=== PATIENT | male | born 1990 | race Caucasian/White ===

== ENCOUNTER 2024-05-04 14:18 | Outpatient (AMB) | payer OTHER, SELFPAY ==
--- NOTE | 2024-05-04 14:21 | MHC.PC.OV ---
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 pt will drop off values in 3 weeks approx. PFSH Social History Housing: House Patient Tobacco Use Status: Never used Tobacco service: No Current occupational status: employed Current occupation: [employer] Cognitive needs: No Hearing needs: No Vision needs: No Questionnaire PHQ-9 Over the last 2 weeks, how often have you been bothered by any of the following problems? 1. Little interest or pleasure in doing things: not at all 2. Feeling down, depressed, or hopeless: not at all 3. Trouble falling or staying asleep, or sleeping too much: not at all 4. Feeling tired or having little energy: several days 5. Poor appetite or overeating: not at all 6. Feeling bad about yourself - or that you are a failure or have let yourself or your family down: not at all 7. Trouble concentrating on things, such as reading the newspaper or watching television: not at all 8. Moving or speaking so slowly that other people could have noticed. Or the opposite - being so fidgety or restless that you have been moving around a lot more than usual: not at all 9. Thoughts that you would be better off or of hurting yourself in some way: not at all Total score: 1 Depression Screening Interpretation: Negative Depression Screening Done: Yes 36878 - PHQ-9 Billing: Yes Source: Developed by Drs. Geraldo Giordano, Neha Fletcher, Jamal Roman and colleagues, with an educational shannon from [employer]. Thrive Questionnaire Date Thrive assessed: 05/04/24 I am a: Patient What is your living situation today?: I have a steady place to live Within the past 12 months, did the food you bought not last and you didn't have the money to get more?: Never true Within the past 12 months, did you worry whether your food would run out before you got money to buy more?: Never true Do you have trouble paying for medicines?: No Do you have trouble getting transportation to medical appointments?: No Do you have trouble paying your heating and electricity bill?: No Do you have trouble taking care of your child, family member or friend?: No Do you have trouble with day-to-day activities such as bathing, preparing meals, shopping, managing finances, etc.?: No Are you currently unemployed and looking for a job?: No Are you interested in more education?: No Please select the resources that you would like help with: Housing/Halfway Currently or been in a relationship where the following occur: No concerns reported THRIVE Score: 0 AUDIT C Alcohol Use Questionnaire (AUDIT-C) 1. How often do you have a drink containing alcohol?: 4 or more times a week 2. How many drinks containing alcohol do you have on a typical day when you are drinking?: 3 or 4 3. How often do you have six or more drinks on one occasion?: Monthly Total Score: 7 DORI-7 AMB Questionnaire DORI-7 Date DORI - 7 assessed: 05/04/24 Feeling nervous, anxious, or on edge: 1 = Several days Not being able to stop or control worryin = Not at all Worrying too much about different things: 0 = Not at all Trouble relaxin = Several days Being so restless that it is hard to sit still: 1 = Several days Becoming easily annoyed or irritable: 1 = Several days Feeling afraid as if something awful might happen: 0 = Not at all Total DORI-7 score (0-4 normal; 5-9 mild; 10-14 moderate; 15-21 severe): 4 Source: Developed by Drs. Geraldo Giordano, Neha Fletcher, Jamal Roman and colleagues, with an educational shannon from [employer]. DORI-7 Assessment Billing DORI-7 Assessment Tool: DORI-7 Assessment 76052 Review of Systems Const Denies chills and Denies fever(s) Eyes Denies blurry vision ENT Denies vertigo, Denies dizziness and Denies sore throat Card Denies chest pain at rest, Denies chest pain with activity, Denies diaphoresis, Denies dyspnea and Denies dyspnea on exertion Resp Denies cough, Denies dyspnea, Denies dyspnea on exertion and Denies wheezing GI Denies abdominal pain, Denies melena, Denies hematochezia, Denies constipation, Denies diarrhea and Denies loose stools Denies hematuria Musc Denies numbness and Denies tingling Skin/Breast Denies lesions Neuro Denies vertigo, Denies dizziness, Denies numbness and Denies tingling Psych Denies anxiety, Denies depression, Denies homicidal ideation, Denies suicidal ideation and Denies other (substance abuse) Aller/Immun Denies wheezing Physical exam (Primary Care) Vital Signs: Last Vital Signs Pulse 86 05/04/24 14:23 BP 150/100 H 05/04/24 14:23 Pulse Ox 98 05/04/24 14:23 Oxygen Delivery Method Room Air 05/04/24 14:23 BMI result Body Mass Index 27.0 Tobacco/Smoking Status: Tobacco use Status Tobacco use date assessed 05/04/24 05/04/24 14:27 Patient Tobacco Use Status Never used Tobacco 05/04/24 14:27 PHQ-9: PHQ-9 Score PHQ-9: Total score 1 05/04/24 14:49 Depression Screening Interpretation: Negative Thrive Assessment: Date of Thrive Assessment Date Thrive assessed 05/04/24 05/04/24 14:27 Currently or been in a relationship where the following occur: No concerns reported Const General: cooperative Nutritional Appearance: well nourished Orientation/consciousness: patient oriented x3 HENMT Head: Yes normal to inspection, Yes normocephalic and Yes atraumatic Ears: TM normal on the right and TM normal on the left Eyes General: appearance normal, both eyes and all related structures Alignment and Position: alignment normal and position normal Neck Neck: Yes normal visual inspection and Yes no lymphadenopathy Resp Effort & Inspection: normal respiratory effort Auscultation: clear to auscultation bilaterally Cardio Rate: regular rate Rhythm: regular rhythm Heart sounds: S1 normal heart sound present, S2 normal heart sound present and no murmurs GI Palpation (GI): Soft to palpation and nontender Auscultation: normal bowel sounds Male General Exam: Yes normal external exam Penis: normal penis Scrotum: scrotum normal, testes descended bilaterally and no inguinal hernias Testes: no testicular mass Skin Rashes: no rashes Neuro General: patient oriented x3, moves all extremities, no focal motor deficits and deep tendon reflexes 2+ bilaterally Romberg Test: Negative Extrem Right lower extremity: no edema Left lower extremity: no edema Psych Affect: normal affect Attitude: cooperative Thought process: Normal thought process present Assessment and Plan Assessment & Plan (1) Physical exam: Code(s): Z00.00 - Encounter for general adult medical examination without abnormal findings (2) HTN (hypertension): Code(s): I10 - Essential (primary) hypertension Plan: starting low dose losartan, pt will take his BP at home and drop off values. Orders: Orders TSH reflex Free T4 Today Z00.00 - Encounter for general adult medical examination without abnormal findings Complete Blood Count Auto Diff Today Z00.00 - Encounter for general adult medical examination without abnormal findings Comprehensive [place]. Panel Fast Today Z00.00 - Encounter for general adult medical examination without abnormal findings UA CC w/rflx Micro + Cult Today Z00.00 - Encounter for general adult medical examination without abnormal findings Lipid Panel Today Z00.00 - Encounter for general adult medical examination without abnormal findings Medications: New losartan 25 mg PO DAILY 90 tabs 0RF Coding Level of Care Code New Pt Prev Care 18-39yr(99716 Diagnoses Physical exam Z00.00 HTN (hypertension) I10 Additional Codes DORI-7 Assessment Billing - DORI-7 Assessment Tool: DORI-7 Assessment 72909 ([id number])
[2024-05-04 14:23] VITALS: BP 150/100; PULSE 86; O2SAT 98; BMI 27.0
[2024-05-04 15:05] VITALS: BP 150/100
== END 2024-05-04 15:19 | disposition home or self-care (01) ==
PROVIDERS: PCP Nurse Practitioner Family; Visit Provider Nurse Practitioner Family
DX: Z00.00 Encounter for general adult medical examination without abnormal findings (principal); I10 Essential (primary) hypertension
CPT/HCPCS: 99385

== ENCOUNTER 2024-10-03 08:41 | Outpatient (REF) | payer OTHER, SELFPAY ==
[2024-10-03 11:26] LABS: MANUAL DIFF FLAG NO
[2024-10-03 11:27] LABS: Basophils Percent Auto 0.8 % (0-2); Eosinophils Absolute Auto 0.1 X10*3/uL (0.0-0.4); Eosinophils Percent Auto 1.5 % (0-4); Hematocrit 43.8 % (42.0-52.0); Imm Gran Abs Auto 0.01 X10*3/uL (0.00-0.03); Imm Gran Pct Auto 0.2 % (0.0-0.4); Lymphocytes Absolute Auto 1.9 X10*3/uL (1.2-4.9); Mean Corpuscular HGB Conc 34.2 g/dl (31.0-36.0); Mean Corpuscular Hemoglobin 31.5 pg (27.0-33.0); Mean Platelet Volume 10.9 fL (9.4-12.4); Monocytes Absolute Auto 0.5 X10*3/uL (0.1-1.2); Monocytes Percent Auto 10.2 % (2-11); Neutrophils Absolute Auto 2.8 x10*3/uL (2.0-8.3); Neutrophils Percent Auto 52.3 % (45-73); Platelet Count 247 X10*3/uL (160-400); Red Blood Count 4.76 X10*6/uL (4.60-5.80); Red Cell Distribution Width 12.3 % (11.0-16.0); White Blood Count 5.3 X10*3/uL (4.8-10.8)
[2024-10-03 11:50] LABS: Alanine Aminotransferase 44 U/L (0-40); Albumin Level 4.1 g/dL (3.5-5.0); Alkaline Phosphatase 45 U/L (39-117); Anion Gap 11 (12-20); Aspartate Amino Transferase 29 U/L (5-37); Bilirubin Total 0.8 mg/dL (0.0-1.0); Blood Urea Nitrogen 12 mg/dL (9-16); Carbon Dioxide 26 mmol/L (22-29); Chloride 108 mmol/L (96-108); Cholesterol 279 mg/dL (<200); Estimated Glomerular Filt Rate > 60; Glucose Fasting 100 mg/dL (60-99); HDL Cholesterol 63 mg/dL (>40); LDL Cholesterol Calculated 186 mg/dL (<100); Sodium 141 mmol/L (135-145); Total Protein 6.8 g/dL (6.5-8.0); Triglycerides 154 mg/dL (<150)
[2024-10-03 12:05] LABS: TSH reflex Free T4 1.61 uIU/mL (0.32-4.0)
== END 2024-10-03 08:42 | disposition home or self-care (01) ==
LOC: HO.HMGCLDS 08:41
PROVIDERS: PCP Nurse Practitioner Family; Visit Provider Nurse Practitioner Family
DX: Z00.00 Encounter for general adult medical examination without abnormal findings (principal)
CPT/HCPCS: 36415; 80053; 80061; 84443; 85025

== ENCOUNTER 2024-10-19 16:03 | Outpatient (AMB) | payer OTHER, SELFPAY ==
[2024-10-19 16:04] VITALS: BP 138/88; PULSE 81; O2SAT 98; BMI 27.7
--- NOTE | 2024-10-19 16:04 | A.OFFPC_ITS ---
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 Accompanied by: Self / Same As Patient Allergies No Known Allergies Allergy (Verified 10/19/24 16:05) Medication List - Last Reconciled 10/19/24 by RORY Zhou losartan 25 mg PO DAILY Tobacco use date assessed: 10/19/24 Dental Screening Dental Screen Date: 10/19/24 Did you have a dental visit in the last 12 months?: Yes Did you have a dental problem in the last 6 months where you did not have access to dental care?: No Was dental information given to patient?: Patient has dentist HPI 6 month follow up HPI Details Chief Complaint Review of laboratory results indicating elevated liver enzymes and hy perlipidemia. History of Present Illness The patient is a 34-year-old male presenting for follow-up of recent laboratory findings. Initially, at the end of September, the patient's blood tests revealed a slightly elevated alanine aminotransferase (ALT) level, prompting further investigation into possible hepatic issues. In addition, there were significant concerns about lipid profile abnormalities, particularly with elevated cholesterol levels, including LDL and triglycerides. There have not been any reported abdominal symptoms. The patient has been advised on dietary modifications to help manage these issues, and plans have been made to reassess the lipid panel in two months with a fasting lab. The patient is aware of the potential need for pharmacological intervention depending on follow-up results. Social History - Current focus on dietary management to address hyperlipidemia Health Maintenance - Discussion on dietary changes for lipi d management - Plan for repeat fasting lipid profile in two months Review of Systems Physical Exam General: Cooperative, healthy appearing, comfortable, no acute distress and well developed Orientation: Patient oriented x3 Limitations: No limitations Head: Normal to inspection Ears: Hearing grossly normal bilaterally Nose: Normal external nose present Face and sinus: Normal facial exam Eyes: Appearance normal, both eyes and all related structures Neck: Normal visual inspection and Yes full ROM Respiratory: Normal respiratory effort and able to speak in complete sentences. Clear to auscultation bilaterally Cardiovascular: Regular rate and rhythm. Normal S1 and S2 GI: Normal to inspection. Soft to palpation and nontender Skin: No rashes or lesions noted Neuro: Patient oriented x3 Extremities: Normal to inspection Results - Labs: Elevated ALT, Elevated LDL and t riglycerides Plan - Schedule an abdominal ultrasound to in vestigate elevated liver enzymes. - Perform hepatitis screening. - Educate the patient on dietary modific ations focusing on lipid control. - Plan to repeat lipid profile in two mo [facility] under fasting conditions. - Consider starting a statin medication based on future lab results. Patient was informed and verbally consented to the use of an ambient scribe for clinic note documentation during this visit. Discussion Notes I discussed with the patient the findings of elevated ALT and potential causes requiring further investigation through imaging and hepatitis screening. We reviewed the elevated cholesterol, LDL, and triglycerides levels and emphasized the importance of dietary modifications to reduce these values. The patient was informed of the potential need for statin therapy if lipid levels remain elevated, acknowledging the benefits and possible risks associated with medication. Follow-up plans include obtaining a fasting lipid profile in two months to evaluate the effectiveness of dietary changes. Patient Instructions - Follow the dietary recommendations pro vided to assist in reducing cholesterol levels. - Undergo an abdominal ultrasound and he patitis screening as directed. - Schedule blood tests for a repeat fast ing lipid profile in two months. - Return for follow-up after completing the tests to discuss further management. [facility] Surgical History No pertinent past surgical history Social History Housing: House Patient Tobacco Use Status: Never used Tobacco service: No Current occupational status: employed Current occupation: [employer] Cognitive needs: No Hearing needs: No Vision needs: No Questionnaire PHQ-9 Over the last 2 weeks, how often have you been bothered by any of the following problems? 1. Little interest or pleasure in doing things: not at all 2. Feeling down, depressed, or hopeless: not at all 3. Trouble falling or staying asleep, or sleeping too much: not at all 4. Feeling tired or having little energy: several days 5. Poor appetite or overeating: not at all 6. Feeling bad about yourself - or that you are a failure or have let yourself or your family down: not at all 7. Trouble concentrating on things, such as reading the newspaper or watching television: not at all 8. Moving or speaking so slowly that other people could have noticed. Or the opposite - being so fidgety or restless that you have been moving around a lot more than usual: not at all 9. Thoughts that you would be better off or of hurting yourself in some way: not at all Total score: 1 Depression Screening Interpretation: Negative Depression Screening Done: Yes 91298 - PHQ-9 Billing: Yes Source: Developed by Drs. Geraldo Giordano, Neha Fletcher, Jamal Roman and colleagues, with an educational shannon from [employer]. Thrive Questionnaire Date Thrive assessed: 10/19/24 I am a: Patient What is your living situation today?: I have a steady place to live Within the past 12 months, did the food you bought not last and you didn't have the money to get more?: Never true Within the past 12 months, did you worry whether your food would run out before you got money to buy more?: Never true Do you have trouble paying for medicines?: No Do you have trouble getting transportation to medical appointments?: No Do you have trouble paying your heating and electricity bill?: No Do you have trouble taking care of your child, family member or friend?: No Do you have trouble with day-to-day activities such as bathing, preparing meals, shopping, managing finances, etc.?: No Are you currently unemployed and looking for a job?: No Are you interested in more education?: No Please select the resources that you would like help with: None Currently or been in a relationship where the following occur: No concerns reported THRIVE Score: 0 AUDIT C Alcohol Use Questionnaire (AUDIT-C) 1. How often do you have a drink containing alcohol?: 2-3 times a week 2. How many drinks containing alcohol do you have on a typical day when you are drinking?: 5 or 6 3. How often do you have six or more drinks on one occasion?: Monthly Total Score: 7 Score Reviewed/Action Taken: Yes DORI-7 AMB Questionnaire DORI-7 Date DORI - 7 assessed: 10/19/24 Feeling nervous, anxious, or on edge: 0 = Not at all Not being able to stop or control worryin = Not at all Worrying too much about different things: 0 = Not at all Trouble relaxin = Not at all Being so restless that it is hard to sit still: 0 = Not at all Becoming easily annoyed or irritable: 0 = Not at all Feeling afraid as if something awful might happen: 0 = Not at all Total DORI-7 score (0-4 normal; 5-9 mild; 10-14 moderate; 15-21 severe): 0 Source: Developed by Drs. Geraldo Giordano, Neha Fletcher, Jamal Roman and colleagues, with an educational shannon from [employer]. DORI-7 Assessment Billing DORI-7 Assessment Tool: DORI-7 Assessment 11628 Physical exam (Primary Care) Vital Signs: Last Vital Signs Pulse 81 10/19/24 16:04 BP 138/88 10/19/24 16:04 Pulse Ox 98 10/19/24 16:04 Oxygen Delivery Method Room Air 10/19/24 16:04 BMI result Body Mass Index 27.7 Tobacco/Smoking Status: Tobacco use Status Tobacco use date assessed 10/19/24 10/19/24 16:10 Patient Tobacco Use Status Never used Tobacco 10/19/24 16:10 PHQ-9: PHQ-9 Score PHQ-9: Total score 1 10/19/24 16:10 Depression Screening Interpretation: Negative Thrive Assessment: Date of Thrive Assessment Date Thrive assessed 10/19/24 10/19/24 16:10 Currently or been in a relationship where the following occur: No concerns reported Coding Level of Care Code Est Pt Level 3 (51685) Diagnoses Dyslipidemia E78.5 Elevated liver enzymes R74.8 Additional Codes DORI-7 Assessment Billing - DORI-7 Assessment Tool: DORI-7 Assessment 61467 ([id number]) PHQ-9 - 59173 - PHQ-9 Billing: Yes ([id number]) Assessment & Plan Assessment & Plan (1) Dyslipidemia: Code(s): E78.5 - Hyperlipidemia, unspecified Category: Medical (2) Elevated liver enzymes: Code(s): R74.8 - Abnormal levels of other serum enzymes Category: Medical Plan . Orders: Orders Comprehensive [place]. Panel Fast Today E78.5 - Hyperlipidemia, unspecified Hepatitis A,B,C Profile Today E78.5 - Hyperlipidemia, unspecified, R74.8 - Abnormal levels of other serum enzymes Lipid Panel Today E78.5 - Hyperlipidemia, unspecified US abdomen complete Today E78.5 - Hyperlipidemia, unspecified, R74.8 - Abnormal levels of other serum enzymes
== END 2024-10-19 16:34 | disposition home or self-care (01) ==
LOC: HO.HMCC 16:03
PROVIDERS: PCP Nurse Practitioner Family; Visit Provider Nurse Practitioner Family
DX: E78.5 Hyperlipidemia, unspecified (principal); R74.8 Abnormal levels of other serum enzymes

== ENCOUNTER → 2024-10-19 16:03 | Outpatient (BNVA) | payer OTHER, SELFPAY | PROVIDERS: PCP Nurse Practitioner Family; Visit Provider Nurse Practitioner Family | DX: E78.5 Hyperlipidemia, unspecified (principal); R74.8 Abnormal levels of other serum enzymes | CPT/HCPCS: 96127; 99212 ==

== ENCOUNTER 2024-11-12 08:54 | Outpatient (REF) | payer OTHER, SELFPAY ==
--- NOTE | ~2024-11-12 | US_ITS ---
CLINICAL HISTORY: R74.8 - Abnormal levels of other serum enzymes US abdomen complete Comparison: None Findings: The visualized pancreas is normal. The aorta and inferior vena cava are normal caliber. The appearance of the liver suggests fatty infiltration without focal lesion. There is no intrahepatic bile duct dilatation. The common duct is 2.0 mm in diameter. The gallbladder is normal. There is no sonographic Bro sign. The main portal vein is antegrade. The right kidney is 10.8 cm in length. The left kidney is 9.4 cm in length. The spleen is normal. No ascites. IMPRESSION: 1. Hepatic steatosis. This document has been electronically signed by: Dario Sumner MD on 11/13/2024 08:12:06
--- OUTSIDE RECORDS SUMMARY | 2024-11-12 09:10 | XMS_ITS | Encounter Summary ---
Author Organization [facility] Address [address] [place] [id number] Phone Care Team Providers Care Medical Billing Service Name Role Phone Unavailable Primary Care Provider Unavailabl e Encounter Details Date Type Department Care Team (Late st Contact Info) Description 05/23/2017 Conversion Encounter [facility] - [address] [address] Social History Tobacco Use Types Packs/Day Years Used Date Smoking Tobacco: Never Assessed Sex and Gender Information Value Date Recorded Sex Assigned at Not on file Legal Sex Male 4:30 PM EDT Gender Identity Not on file Sexual Orientation Not on file documented as of this encounter Plan of Treatment Not on file documented as of this encounter Visit Diagnoses Not on filedocumented in this encounter
--- OUTSIDE RECORDS SUMMARY | 2024-11-12 09:10 | XMS_ITS | Clinical Summary ---
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 Role Phone Unavailable Primary Care Provider Unavailabl e Immunizations Immunization Administration Dates Next Due DTP 04/04/1994, 0,05/16/1989,02/14,1988 Hep B, ped/adol 10/29/2001,05/27/2001,04/15/2001 Hib (PRP-T) 05/26/1990 IPV 04/04/1994, 0,02/14/1989,12/07 MMR 07/23/2001,02/06/1990 Meningococcal Conj (Menactra) MCV4P 03/10/2007 Td (adult) (MBL), 2 Lf tetan us toxoid, PF, adsorbed 05/07/2009,04/15/2001 Varicella 05/10/1998 Family History Relation Name Status Comments Brother Alive Brother: Alive and well Father Alive Father: Alive a nd well Mother Alive Mother: Alive a nd well Social History Tobacco Use Types Packs/Day Years Used Date Smoking Tobacco: Never Assessed Sex and Gender Information Value Date Recorded Sex Assigned at Not on file Legal Sex Male 4:30 PM EDT Gender Identity Not on file Sexual Orientation Not on file Plan of Treatment Health Maintenance Due Date Last Done Comments Varicella Vaccines (2 of 2 - 2-dose childhood series) 08/20/2001 05/10/1998 DTaP,Tdap,and Td Vaccines (6 - Tdap) 05/08/2009 05/07/2009, 04/15/2001, 04/04/1994, Additional history exists Influenza Vaccines (#1) 2024 COVID-19 Vaccine ( season) 2024 HIB Vaccines Completed 05/26/1990 IPV Vaccines Completed 04/04/1994, 05/08, 02/14/1989, Additional history exists MMR Vaccines Completed 07/23/2001, 02/06/1990 Hepatitis B Vaccines Completed 10/29/2001, 05/27/2001, 04/15/2001 Meningococcal Vaccine Completed 03/10/2007 HPV Vaccines Aged Out No longer eligi ble based on patient's age to complete this topic Hepatitis A Vaccines Aged Out No long er eligible based on patient's age to complete this topic Men B Vaccine Aged Out No longer elig ible based on patient's age to complete this topic Pneumococcal Vaccine Aged Out No long er eligible based on patient's age to complete this topic
[2024-11-12 10:03] LABS: Appearance Urine Clear; Color Urine Yellow; Glucose Urine UA Negative (Negative); Leukocyte Esterase Urine Negative (Negative); Nitrite Urine Negative (Negative); PH 7.5 (5.0-9.0); Specific Gravity - Urine 1.025 (1.005-1.025); Urine Blood Negative (Negative); Urine Ketones Negative (Negative); Urine Protein Negative (Neg-Trace)
== END 2024-11-12 08:55 | disposition home or self-care (01) ==
LOC: HO.HMGCX 08:54
PROVIDERS: PCP Nurse Practitioner Family; Visit Provider Nurse Practitioner Family
DX: R74.8 Abnormal levels of other serum enzymes (principal); E78.5 Hyperlipidemia, unspecified; Z00.00 Encounter for general adult medical examination without abnormal findings; K76.0 Fatty (change of) liver, not elsewhere classified
CPT/HCPCS: 76700; 81003

== ENCOUNTER → 2024-11-12 08:58 | Outpatient (BNV) | payer OTHER, SELFPAY | PROVIDERS: PCP Nurse Practitioner Family; Visit Provider Specialist | DX: K76.0 Fatty (change of) liver, not elsewhere classified (principal); R74.8 Abnormal levels of other serum enzymes | CPT/HCPCS: 76700 ==